=== PATIENT | female | born 1995 | race American Indian/Alaskan Native ===

== ENCOUNTER 2017-04-03 03:40 | Inpatient (IN) | payer MEDICAID ==
[2017-04-03] MEDS ORDERED: BRETHINE SUB-Q PRN (04:14)
[2017-04-03] MEDS ORDERED: MINERAL OIL PO PRN (04:14)
[2017-04-03] MEDS ORDERED: ePHEDrine SULFATE IV PRN ×2 (04:14→06:26)
[2017-04-03] MEDS ORDERED: SUBLIMAZE IV PRN (04:14)
[2017-04-03] MEDS ORDERED: STADOL IV PRN (04:14)
[2017-04-03] MEDS ORDERED: XYLOCAINE 2% INFILTRATI ONE (04:14)
[2017-04-03] MEDS ORDERED: BRETHINE IVP PRN (04:14)
[2017-04-03] MEDS: LACTATED RINGERS 1,000 ML IV SCH ×2 (04:30→05:22)
[2017-04-03] MEDS ORDERED: ZOFRAN ONE (04:44)
[2017-04-03 04:51] LABS: Hemoglobin 13.2 gm/dl (10.1-14.3); Mean Corpuscular HGB Conc 35 % (30-34); Mean Corpuscular Hemoglobin 33 pg (28-32); Mean Corpuscular Volume 95 fl (79-97); Platelet Count 122 K/mm3 (140-440); Red Blood Count 3.99 M/mm3 (3.65-5.03); Red Cell Distribution Width 13.3 % (13.2-15.2); White Blood Count 14.3 K/mm3 (4.5-11.0)
[2017-04-03] MEDS ORDERED: PITOCin/NS 20 UNIT/1000ML DRIP 20 UNITS/1,000 ML BAG IV SCH ×3 (05:00→12:00)
[2017-04-03] MEDS ORDERED: LACTATED RINGERS 1,000 ML IV SCH ×2 (05:00→11:00)
[2017-04-03] MEDS ORDERED: NARCAN 2 MG/2 ML IV PRN (06:26)
--- NOTE | 2017-04-03 06:26 | Anesthesia Consultation ---
Anesthesia Consult and Med Hx Date of service: 04/03/17 - Airway Anesthetic Teeth Evaluation: Good ROM Head & Neck: Adequate Mental/Hyoid Distance: Adequate Mallampati Class: Class II Intubation Access Assessment: Probably Good - Pulmonary Exam CTA: Yes - Cardiac Exam Cardiac Exam: RRR - Pre-Operative Health Status ASA Pre-Surgery Classification: ASA2 Proposed Anesthetic Plan: Epidural - Pulmonary Hx Asthma: No COPD: No Hx Pneumonia: No - Cardiovascular System Hx Hypertension: No - Central Nervous System Hx Seizures: No Hx Psychiatric Problems: No - Endocrine Hx Renal Disease: No Hx End Stage Renal Disease: No Hx Hypothyroidism: No Hx Hyperthyroidism: No - Hematic Hx Anemia: No Hx Sickle Cell Disease: No - Other Systems Hx Alcohol Use: No
--- NOTE | 2017-04-03 06:57 | History and Physical Report ---
History of Present Illness Date of examination: 04/03/17 (pt presented 5cm) Date of admission: 04/03/17 04:22 History of present illness: 22yo EDC Pt states she has had an uneventful Her last visit with [facility] was last Monday. Pt denies ETOH,Drug,Smoking in Unable to get PNR at this time will order labs and start Ampicillin prophylaxis for unknown GBS Past History - Obstetrical History Expected Date of Delivery: 03/30/17 (started care with [facility] @ 8weeks [place]) Actual Gestation: 40 Week(s) 4 Day(s) : 1 Para: 0 Number of Living Children: 0 Medications and Allergies Allergies Allergy/AdvReac Type Severity Reaction Status Date / Time No Known Allergies Allergy Verified 04/03/17 04:19 Home Medications Medication Instructions Recorded Confirmed Last Taken Type Vit-Fe Fumar-FA [ 1 tab PO QDAY 04/03/17 04/03/17 04/02/17 History Vitamin] Valacyclovir HCl [Valtrex] 1,000 mg PO QDAY 04/03/17 04/03/17 04/02/17 History Active Meds: Active Medications Butorphanol Tartrate (Stadol) 2 mg IV Q2H PRN PRN Reason: Pain , Severe (7-10) Last Admin: 04/03/17 04:49 Dose: 2 mg Ephedrine Sulfate (Ephedrine Sulfate) 10 mg IV Q2M PRN PRN Reason: Hypotension Fentanyl (Sublimaze) 100 mcg IV Q2H PRN PRN Reason: Labor Pain Lactated Ringer's (Lactated Ringers) 1,000 mls @ 125 mls/hr IV DIRECT PORTIA Last Admin: 04/03/17 05:22 Dose: 125 mls/hr Oxytocin/Sodium Chloride (Pitocin/Ns 20 Unit/1000ml Drip) 20 units in 1,000 mls @ 125 mls/hr IV DIRECT PORTIA Fentanyl/Bupivacaine/Sodium Chlor (Fentanyl-Bupiv 2 Mcg/Ml-0.125%) 200 mcg in 100 mls @ 12 mls/hr EPIDURAL TITR PORTIA PRN Reason: Protocol Oxytocin/Sodium Chloride (Pitocin/Ns 30 Unit/500ml) 30 units in 500 mls @ 4 mls /hr IV Q30MIN PORTIA; 4 MILLIUNITS/MIN PRN Reason: Protocol Mineral Oil (Mineral Oil) 30 ml PO QHS PRN PRN Reason: Constipation Naloxone HCl (Narcan 2 Mg/2 Ml) 0.2 mg IV Q5M PRN PRN Reason: Respiratory sedation Terbutaline Sulfate (Brethine) 0.25 mg SUB-Q ONCE PRN PRN Reason: Hyperstimulation/Hypertonicity Terbutaline Sulfate (Brethine) 0.25 mg IVP ONCE PRN PRN Reason: Hyperstimulation/Hypertonicity - Vital Signs Vital signs: Vital Signs Temp Resp 98.1 F 22 04/03/17 03:49 04/03/17 03:49 Temp Pulse Resp BP Pulse Ox 98.1 F 95 H 20 122/67 97 04/03/17 03:49 04/03/17 06:53 04/03/17 04:49 04/03/17 06:53 04/03/17 06:52 - Physical Exam Breasts: Positive: deferred Cardiovascular: Regular rate, Normal S1, Normal S2 Lungs: Positive: Normal air movement Abdomen: Positive: normal appearance, soft, normal bowel sounds. Negative: distention, tenderness Genitourinary (Female): Positive: normal external genitalia Vulva: both: normal Vagina: Positive: normal moisture. Negative: discharge Cervix: Negative: lesion, discharge Uterus: Positive: normal size, normal contour Adnexa: both: normal Anus/Rectum: Positive: normal perianal skin, heme negative. Negative: rectal mass, hemorrhoids Extremities: Positive: normal Deep Tendon Reflex Grade: Normal +2 - Obstetrical FHR: category 1 Uterine Contraction Monitor Mode: External Cervical Dilatation: 5 (BBOW on admission) Cervical Effacement Percentage: 70 station: -1 Uterine Contraction Pattern: Regular Uterine Contraction Intensity: Moderate Results Result Diagrams: 04/03/17 Unknown Abnormal lab results 04/03/17 Range/Units Unknown WBC 14.3 H (4.5-11.0) K/mm3 MCH 33 H (28-32) pg MCHC 35 H (30-34) % Plt Count 122 L (140-440) K/mm3 All other labs normal. All labs ordered Assessment and Plan 22yo who presented to [facility] in active labor Unable to access PNV Will send SHERI to practice GBS unknown will treat All orders in EMR
[2017-04-03] MEDS ORDERED: PITOCin/NS 30 UNIT/500ML 30 UNITS/500 ML BAG IV SCH (07:00)
[2017-04-03] MEDS ORDERED: METHERGINE IM PRN (07:00)
[2017-04-03] MEDS ORDERED: fentaNYL-BUPIV 2 MCG/ML-0.125% 200 MCG/100 ML BAG EPIDURAL SCH (07:00)
--- NOTE | 2017-04-03 07:21 | Event Note ---
Date: 04/03/17 (pt comfortable with epidural) SVE AROM clear fluid ISE/IUPC placed. SVE no chg. Called urgently back to LDR after approx 10 min for prolong deceleration ISE was not attached. Pt being repositioned side to side. O2 on. 2nd ISE applied worked immediately. Terb and Ephedrine given. FHR recovered minimal variability. Variable decel . Explained all findings and concerns to pt and her mom. SVE 6,100,+1 Ctx now Q5-6. Will start pitocin per protocol.
[2017-04-03] MEDS ORDERED: POLYCILLIN/NS 2 GM/100 ML 2 GM/100 ML BAG IV ONE (07:30)
[2017-04-03 07:43] LABS: HIV-1 Antigen p24 Non React (Non React); HIVR-1/2 Ab Non React (Non React)
[2017-04-03 08:19] LABS: Urine Drugs of Abuse Note Disclamer
[2017-04-03 08:29] LABS: Bilirubin,Urine NEG (Negative); Blood,Urine LG (Negative); Ketones,Urine 80 mg/dL (Negative); Leukocyte Esterase,Urine NEG (Negative); Mucus,Urine 1+ /HPF; Nitrite,Urine NEG (Negative); Urobilinogen,Urine < 2.0 mg/dL (<2.0)
[2017-04-03] MEDS ORDERED: BICITRA PO NR (10:04)
--- NOTE | 2017-04-03 10:06 | Progress Note ---
Assessment and Plan Spoke with Cat 2 SVE 7,100,-1 Deep variables with ctx section called Spoke with pt and family explained need for operative intervention Risks explained Consents signed Prepped for c/s Subjective - Subjective Date of service: 04/03/17 (Repetative deep variables Spoke with C/S called) Interval history: 22yo EDC Pt states she has had an uneventful Her last visit with [facility] was last Monday. Pt denies ETOH,Drug,Smoking in Unable to get PNR at this time will order labs and start Ampicillin prophylaxis for unknown GBS Patient reports: movement normal Objective - Vital Signs Vital Signs: Vital Signs - 12hr 04/03/17 04/03/17 04/03/17 03:49 03:55 04:00 Temperature 98.1 F Pulse Rate 106 H 96 H Respiratory 22 Rate Blood Pressure 137/73 Blood Pressure [Left] O2 Sat by Pulse 100 97 Oximetry 04/03/17 04/03/17 04/03/17 04:05 04:10 04:15 Temperature Pulse Rate 96 H 95 H 92 H Respiratory Rate Blood Pressure Blood Pressure [Left] O2 Sat by Pulse 98 98 98 Oximetry 04/03/17 04/03/17 04/03/17 04:20 04:49 04:57 Temperature Pulse Rate 113 H 88 Respiratory 20 Rate Blood Pressure Blood Pressure [Left] O2 Sat by Pulse 97 96 Oximetry 04/03/17 04/03/17 04/03/17 05:00 05:02 05:05 Temperature Pulse Rate 84 82 89 Respiratory Rate Blood Pressure Blood Pressure [Left] O2 Sat by Pulse 94 97 93 Oximetry 04/03/17 04/03/17 04/03/17 05:07 05:11 05:12 Temperature Pulse Rate 86 84 85 Respiratory Rate Blood Pressure Blood Pressure [Left] O2 Sat by Pulse 95 92 96 Oximetry 04/03/17 04/03/17 04/03/17 05:17 05:22 05:23 Temperature Pulse Rate 84 76 96 H Respiratory Rate Blood Pressure Blood Pressure [Left] O2 Sat by Pulse 97 96 92 Oximetry 04/03/17 04/03/17 04/03/17 05:27 05:28 05:32 Temperature Pulse Rate 88 88 82 Respiratory Rate Blood Pressure Blood Pressure [Left] O2 Sat by Pulse 96 94 97 Oximetry 04/03/17 04/03/17 04/03/17 05:36 05:37 05:42 Temperature Pulse Rate 97 H 85 84 Respiratory Rate Blood Pressure Blood Pressure [Left] O2 Sat by Pulse 94 96 95 Oximetry 04/03/17 04/03/17 04/03/17 05:46 05:47 05:52 Temperature Pulse Rate 90 83 92 H Respiratory Rate Blood Pressure Blood Pressure [Left] O2 Sat by Pulse 94 97 94 Oximetry 04/03/17 04/03/17 04/03/17 05:57 06:02 06:07 Temperature Pulse Rate 104 H 85 93 H Respiratory Rate Blood Pressure Blood Pressure [Left] O2 Sat by Pulse 95 99 97 Oximetry 04/03/17 04/03/17 04/03/17 06:10 06:12 06:17 Temperature Pulse Rate 53 L 99 H 84 Respiratory Rate Blood Pressure Blood Pressure [Left] O2 Sat by Pulse 85 98 98 Oximetry 04/03/17 04/03/17 04/03/17 06:22 06:23 06:25 Temperature Pulse Rate 87 91 H 82 Respiratory Rate Blood Pressure 120/63 Blood Pressure [Left] O2 Sat by Pulse 98 92 Oximetry 04/03/17 04/03/17 04/03/17 06:27 06:29 06:31 Temperature Pulse Rate 81 85 88 Respiratory Rate Blood Pressure 115/62 117/59 119/60 Blood Pressure [Left] O2 Sat by Pulse 95 Oximetry 04/03/17 04/03/17 04/03/17 06:32 06:33 06:35 Temperature Pulse Rate 84 90 95 H Respiratory Rate Blood Pressure 115/62 116/61 Blood Pressure [Left] O2 Sat by Pulse 97 Oximetry 04/03/17 04/03/17 04/03/17 06:37 06:39 06:41 Temperature Pulse Rate 99 H 93 H 91 H Respiratory Rate Blood Pressure 117/61 123/62 116/60 Blood Pressure [Left] O2 Sat by Pulse 98 Oximetry 04/03/17 04/03/17 04/03/17 06:42 06:43 06:45 Temperature Pulse Rate 86 92 H 90 Respiratory Rate Blood Pressure 121/62 120/63 Blood Pressure [Left] O2 Sat by Pulse 97 Oximetry 04/03/17 04/03/17 04/03/17 06:47 06:49 06:51 Temperature Pulse Rate 91 H 88 85 Respiratory Rate Blood Pressure 119/63 119/63 124/63 Blood Pressure [Left] O2 Sat by Pulse 97 Oximetry 04/03/17 04/03/17 04/03/17 06:52 06:53 06:55 Temperature Pulse Rate 81 95 H 88 Respiratory Rate Blood Pressure 122/67 118/65 Blood Pressure [Left] O2 Sat by Pulse 97 Oximetry 04/03/17 04/03/17 04/03/17 06:57 06:59 07:01 Temperature Pulse Rate 85 95 H 92 H Respiratory Rate Blood Pressure 121/65 121/66 123/66 Blood Pressure [Left] O2 Sat by Pulse 96 Oximetry 04/03/17 04/03/17 04/03/17 07:02 07:04 07:05 Temperature Pulse Rate 81 88 88 Respiratory Rate Blood Pressure 118/65 116/66 Blood Pressure [Left] O2 Sat by Pulse 82 L Oximetry 04/03/17 04/03/17 04/03/17 07:07 07:10 07:11 Temperature Pulse Rate 86 81 78 Respiratory Rate Blood Pressure 110/65 141/66 135/63 Blood Pressure [Left] O2 Sat by Pulse 81 L Oximetry 04/03/17 04/03/17 04/03/17 07:13 07:14 07:15 Temperature Pulse Rate 89 54 L 82 Respiratory Rate Blood Pressure 128/62 129/61 Blood Pressure [Left] O2 Sat by Pulse 86 Oximetry 04/03/17 04/03/17 04/03/17 07:17 07:19 07:21 Temperature Pulse Rate 80 80 89 Respiratory Rate Blood Pressure 131/61 128/62 131/60 Blood Pressure [Left] O2 Sat by Pulse 81 L Oximetry 04/03/17 04/03/17 04/03/17 07:23 07:24 07:25 Temperature Pulse Rate 90 88 107 H Respiratory Rate Blood Pressure 131/62 125/62 Blood Pressure [Left] O2 Sat by Pulse 100 Oximetry 04/03/17 04/03/17 04/03/17 07:27 07:29 07:31 Temperature Pulse Rate 91 H 88 88 Respiratory Rate Blood Pressure 132/64 127/60 129/62 Blood Pressure [Left] O2 Sat by Pulse 100 Oximetry 04/03/17 04/03/17 04/03/17 07:33 07:34 07:35 Temperature Pulse Rate 92 H 92 H 93 H Respiratory Rate Blood Pressure 128/57 127/60 Blood Pressure [Left] O2 Sat by Pulse 100 Oximetry 04/03/17 04/03/17 04/03/17 07:37 07:39 07:41 Temperature Pulse Rate 86 91 H 94 H Respiratory Rate Blood Pressure 124/56 125/58 126/61 Blood Pressure [Left] O2 Sat by Pulse 100 Oximetry 04/03/17 04/03/17 04/03/17 07:43 07:44 07:45 Temperature Pulse Rate 91 H 88 92 H Respiratory Rate Blood Pressure 119/57 127/60 Blood Pressure [Left] O2 Sat by Pulse 100 Oximetry 04/03/17 04/03/17 04/03/17 07:47 07:49 07:51 Temperature Pulse Rate 51 L 92 H 96 H Respiratory Rate Blood Pressure 130/64 130/61 127/62 Blood Pressure [Left] O2 Sat by Pulse 100 Oximetry 04/03/17 04/03/17 04/03/17 07:53 07:54 07:55 Temperature Pulse Rate 88 96 H 93 H Respiratory Rate Blood Pressure 130/60 126/60 Blood Pressure [Left] O2 Sat by Pulse 100 Oximetry 04/03/17 04/03/17 04/03/17 07:57 07:59 08:01 Temperature Pulse Rate 93 H 93 H 100 H Respiratory Rate Blood Pressure 129/61 130/60 131/74 Blood Pressure [Left] O2 Sat by Pulse 100 Oximetry 04/03/17 04/03/17 04/03/17 08:04 08:05 08:07 Temperature Pulse Rate 91 H 90 106 H Respiratory Rate Blood Pressure 130/71 132/64 128/61 Blood Pressure [Left] O2 Sat by Pulse 99 Oximetry 04/03/17 04/03/17 04/03/17 08:09 08:11 08:13 Temperature Pulse Rate 90 100 H 99 H Respiratory Rate Blood Pressure 129/60 127/61 125/61 Blood Pressure [Left] O2 Sat by Pulse 100 Oximetry 04/03/17 04/03/17 04/03/17 08:14 08:15 08:17 Temperature Pulse Rate 91 H 90 102 H Respiratory Rate Blood Pressure 124/61 130/64 Blood Pressure [Left] O2 Sat by Pulse 100 Oximetry 04/03/17 04/03/17 04/03/17 08:19 08:21 08:23 Temperature Pulse Rate 91 H 99 H 109 H Respiratory Rate Blood Pressure 128/64 131/66 131/62 Blood Pressure [Left] O2 Sat by Pulse 100 Oximetry 04/03/17 04/03/17 04/03/17 08:24 08:25 08:27 Temperature Pulse Rate 102 H 107 H 103 H Respiratory Rate Blood Pressure 130/63 128/61 Blood Pressure [Left] O2 Sat by Pulse 99 Oximetry 04/03/17 04/03/17 04/03/17 08:29 08:31 08:33 Temperature Pulse Rate 95 H 96 H 88 Respiratory Rate Blood Pressure 129/59 131/60 125/62 Blood Pressure [Left] O2 Sat by Pulse 100 Oximetry 04/03/17 04/03/17 04/03/17 08:34 08:35 08:37 Temperature Pulse Rate 98 H 90 94 H Respiratory Rate Blood Pressure 128/61 126/63 Blood Pressure [Left] O2 Sat by Pulse 100 Oximetry 04/03/17 04/03/17 04/03/17 08:39 08:41 08:43 Temperature Pulse Rate 93 H 92 H 93 H Respiratory Rate Blood Pressure 128/62 127/64 126/62 Blood Pressure [Left] O2 Sat by Pulse 100 Oximetry 04/03/17 04/03/17 04/03/17 08:44 08:45 08:47 Temperature Pulse Rate 89 94 H 110 H Respiratory Rate Blood Pressure 125/60 128/63 Blood Pressure [Left] O2 Sat by Pulse 100 Oximetry 04/03/17 04/03/17 04/03/17 08:49 08:51 08:53 Temperature Pulse Rate 92 H 98 H 103 H Respiratory Rate Blood Pressure 126/60 129/65 140/63 Blood Pressure [Left] O2 Sat by Pulse 100 Oximetry 04/03/17 04/03/17 04/03/17 08:54 08:56 08:57 Temperature 99.8 F H Pulse Rate 100 H 97 H 93 H Respiratory 18 Rate Blood Pressure 114/80 115/58 Blood Pressure 120/56 [Left] O2 Sat by Pulse 100 100 Oximetry 04/03/17 04/03/17 04/03/17 08:59 09:01 09:04 Temperature Pulse Rate 99 H 98 H 100 H Respiratory Rate Blood Pressure 120/56 118/55 Blood Pressure [Left] O2 Sat by Pulse 100 100 Oximetry 04/03/17 04/03/17 04/03/17 09:09 09:14 09:17 Temperature Pulse Rate 98 H 100 H 110 H Respiratory Rate Blood Pressure 119/58 Blood Pressure [Left] O2 Sat by Pulse 100 100 Oximetry 04/03/17 04/03/17 04/03/17 09:19 09:24 09:29 Temperature Pulse Rate 104 H 107 H 104 H Respiratory Rate Blood Pressure Blood Pressure [Left] O2 Sat by Pulse 99 100 98 Oximetry 04/03/17 04/03/17 04/03/17 09:32 09:34 09:39 Temperature Pulse Rate 112 H 105 H 102 H Respiratory Rate Blood Pressure 114/61 Blood Pressure [Left] O2 Sat by Pulse 98 100 Oximetry 04/03/17 04/03/17 04/03/17 09:44 09:47 09:49 Temperature Pulse Rate 111 H 100 H 102 H Respiratory Rate Blood Pressure 108/58 Blood Pressure [Left] O2 Sat by Pulse 98 100 Oximetry 04/03/17 04/03/17 04/03/17 09:54 09:59 10:02 Temperature Pulse Rate 100 H 97 H 94 H Respiratory Rate Blood Pressure 118/61 Blood Pressure [Left] O2 Sat by Pulse 100 100 Oximetry - Exam Breasts: normal Abdomen: Present: normal appearance, soft. Absent: distention, tenderness Uterus: Present: normal FHR: auscultation normal, category 2 Uterine Contraction Monitor Mode: Internal Cervical Dilatation: 7 (Bloody show) Cervical Effacement Percentage: 100 station: -1 Uterine Contraction Pattern: Regular Uterine Contraction Intensity: Moderate Extremities: normal Deep Tendon Reflex Grade: Normal +2 - Labs Labs: Abnormal Labs 04/03/17 04/03/17 08:11 Unknown WBC 14.3 H MCH 33 H MCHC 35 H Plt Count 122 L Urine WBC (Auto) 10.0 H Laboratory Results - last 24 hr 04/03/17 04/03/17 04/03/17 04:35 04:35 08:11 WBC RBC Hgb Hct MCV MCH MCHC RDW Plt Count Sickle Cell Screen Urine Color Yellow Urine Turbidity Clear Urine pH 6.0 Ur Specific [place] 1.019 Urine Protein 30 mg/dl Urine Glucose (UA) Neg Urine Ketones 80 Urine Blood Lg Urine Nitrite Neg Urine Bilirubin Neg Urine Urobilinogen < 2.0 Ur Leukocyte Esterase Neg Urine WBC (Auto) 10.0 H Urine RBC (Auto) 84.0 U Epithel Cells (Auto) 2.0 Urine Mucus 1+ HIV 1&2 Antibody Rapid Non react HIV P24 Antigen Non react Rubella IgG Antibody Immune Blood Type Antibody Screen 04/03/17 04/03/17 04/03/17 Unknown Unknown Unknown WBC 14.3 H RBC 3.99 Hgb 13.2 Hct 38.0 MCV 95 MCH 33 H MCHC 35 H RDW 13.3 Plt Count 122 L Sickle Cell Screen Negative Urine Color Urine Turbidity Urine pH Ur Specific [place] Urine Protein Urine Glucose (UA) Urine Ketones Urine Blood Urine Nitrite Urine Bilirubin Urine Urobilinogen Ur Leukocyte Esterase Urine WBC (Auto) Urine RBC (Auto) U Epithel Cells (Auto) Urine Mucus HIV 1&2 Antibody Rapid HIV P24 Antigen Rubella IgG Antibody Blood Type B POSITIVE Antibody Screen Negative
--- NOTE | 2017-04-03 10:28 | Anesthesia Day of Surgery ---
Anesthesia Day of Surgery - Day of Surgery Patient Examined: Yes Patient H&P Reviewed: Yes Patient is NPO: Yes
[2017-04-03] MEDS ORDERED: TORADOL IV PRN (10:29)
[2017-04-03] MEDS ORDERED: MORPHINE IV PRN ×2 (10:29→11:45)
[2017-04-03] MEDS ORDERED: PEPCID IV NR (10:30)
[2017-04-03] MEDS ORDERED: REGLAN IV NR (10:30)
--- NOTE | 2017-04-03 10:31 | Event Note ---
Date: 04/03/17 Pt with failure to progress with variable decels noted with contractions. Will proceed with primary c/s for intolearance to labor and failure to progress. Pt reports an 80lb weight gain but no other issues this including having a negative 1hr glucose screen.
[2017-04-03] MEDS ORDERED: XYLOCAINE MPF 2% ONE ×2 (10:37)
[2017-04-03] MEDS ORDERED: POLYCILLIN/NS 1 GM/50 ML 1 GM/50 ML BAG IV SCH (11:00)
[2017-04-03] MEDS ORDERED: WATER FOR IRRIG STERILE IR ONE (11:00)
[2017-04-03] MEDS ORDERED: NACL 0.9% IR ONE (11:00)
[2017-04-03] MEDS ORDERED: ANCEF/STERILE WATER 2 GM/20 ML 2 GM/20 ML SYRINGE IV NR (11:00)
[2017-04-03] MEDS ORDERED: METHERGINE IM ONE (11:04)
[2017-04-03] MEDS ORDERED: NEO SYNEPHRINE/NS Syringe(OR USE) IV ONE (11:11)
--- NOTE | 2017-04-03 11:39 | Operative Report ---
Operative Report Operative Report: Date of procedure: 04/03/2017 Pre-operative diagnosis: 40 +Weeks' gestation Failure to progress intolerance to labor Post-operative diagnosis: Same Procedure name(s): Primary low transverse section via Pfannenstiel skin incision Surgeon: Dr. Forde Acupuncturist: NICK Anesthesia: Epidural EBL: 700 mL Urine output: 100 mL of clear urine out at the end of the procedure Fluids: 700 mL Findings: Liveborn female infant weight 7 lbs. 7 oz. Apgars of 8 and 9 at one and 5 minutes direct OP presentation Grossly normal fallopian tubes and ovaries bilaterally Indications: A she presented in active labor. Patient progressed approximately 6-7 cm without any cervical warp changer several hours. Patient was noted to have prolonged deceleration followed by repetitive variables. Patient was not started on Pitocin as it was felt that the baby could not tolerate the Pitocin. Decision was made this time to proceed with primary section due to intolerance to labor as well as failure to progress. Procedure: Patient was taking to the operating room. Patient was then prepped and draped in sterile fashion after anesthesia was found to be adequate. A low transverse skin incision was made with the scalpel and carried down to the underlying layer of fascia with the Bovie. The fascia was then incised in the midline and this incision was extended bilaterally with the Bovie. The superior aspect of the fascia was grasped with Jhon clamps tented upward and dissected off of the anterior rectus muscles with the scalpel. In similar fashion the inferior aspect of the fascia was grasped with Jhon clamps tented upward and dissected off of the anterior rectus muscles. The rectus muscles were then bluntly divided in the midline. The peritoneum was identified and entered into sharply. The Isaac retractor was placed. The bladder blade was placed. The bladder flap was created using the Metzenbaum scissors. The bladder blade was replaced. A lower transverse uterine incision was made with the scalpel and extended bilaterally with the bandage scissors. An [place] into the uterus yielded clear amniotic fluid. The infant's head was then delivered atraumatically. The anterior shoulder and rest of infant delivered without difficulty. The umbilical cord was clamped x2. The cord was cut. The was then placed in sterile bassinet. The placenta was manually extracted in its entirety. The uterus was exteriorized and cleared of all clots and debris. The uterine incision was closed using 0 Vicryl in a running locking fashion. A second imbricating layer of the same suture was then created. The posterior cul -de-sac was copiously irrigated. The uterus was returned to the abdomen. The gutters were also irrigated. All instruments were removed from the abdomen. The anterior rectus muscles were reapproximated using 3-0 Vicryl. The anterior rectus fascia was reapproximated using 0 Vicryl in a running fashion. The subcuticular fat was reapproximated using 2-0 Vicryl in a running fashion. The skin was reapproximated with 4-0 Monocryl in a subcuticular stitch. The patient tolerated the procedure well. Sponge lap and needle counts were all correct x3. Patient was taken to the recovery room awake and in stable condition.
[2017-04-03] MEDS ORDERED: NARCAN 0.4 MG/1 ML IV PRN (11:43)
[2017-04-03] MEDS ORDERED: LANSINOH TP PRN (11:43)
[2017-04-03] MEDS ORDERED: TUCKS PAD TP PRN (11:43)
[2017-04-03] MEDS ORDERED: MYLICON PO PRN (11:45)
[2017-04-03] MEDS ORDERED: SODIUM CHLORIDE FLUSH SYRINGE 10 ML IV NR (12:00)
[2017-04-03] MEDS: TORADOL IV PRN ×2 (15:00→21:19)
[2017-04-03] MEDS ORDERED: TORADOL IV SCH (18:00)
[2017-04-03] MEDS ORDERED: ANCEF/NS 1 GM/50 ML 1 GM/50 ML BAG IV SCH (18:00)
[2017-04-03] MEDS ORDERED: LACTATED RINGERS 1,000 ML ONE (18:54)
[2017-04-03] MEDS: ceFAZolin 1 GM in NACL 0.9% 20 ML IV SCH (19:56)
[2017-04-03] MEDS: NORCO 5/325 PO PRN (22:41)
[2017-04-03 23:38] LABS: Hematocrit 32.2 % (30.3-42.9); Hemoglobin 10.9 gm/dl (10.1-14.3)
[2017-04-04] MEDS: NORCO 5/325 PO PRN ×4 (02:08→22:36)
[2017-04-04] MEDS: ceFAZolin 1 GM in NACL 0.9% 20 ML IV SCH (04:25)
[2017-04-04] MEDS: MOTRIN PO PRN ×4 (04:26→22:36)
[2017-04-04] MEDS ORDERED: BOOSTRIX IM ONE (06:00)
--- NOTE | 2017-04-04 08:12 | Progress Note ---
Assessment and Plan Patient doing well, ambulating to bathroom with only c/o normal soreness after abd surgery. Parisa portillo, PRESTON, H&H 10.9/32.2. Encouraged increased activity and diet as tolerated. Also encouraged use of ISS. Continue current postop pathway. - Patient Problems (1) delivery delivered Current Visit: Yes Status: Acute Subjective - Subjective Date of service: 04/04/17 Principal diagnosis: postop day #1 s/p primary c/s Patient reports: appetite normal, voiding normally, pain well controlled, flatus , ambulating normally, no dizzy ambulation, no nauseated : doing well, bottle feeding Objective - Vital Signs Latest vital signs: Vital Signs Temp Pulse Resp BP BP Pulse Ox 04/04/17 05:57 98.7 F 77 18 115/78 04/04/17 05:26 16 04/04/17 04:26 18 04/04/17 03:08 18 04/04/17 02:08 18 04/04/17 00:35 97.8 F 74 18 104/52 04/03/17 23:41 18 04/03/17 22:41 18 04/03/17 21:49 18 04/03/17 21:19 18 04/03/17 21:00 98.5 F 103 H 18 125/58 04/03/17 20:26 18 04/03/17 19:56 18 04/03/17 16:58 98.7 F 91 H 18 116/61 97 04/03/17 12:48 88 28 H 132/78 99 04/03/17 12:45 98.9 F 84 18 132/74 04/03/17 12:30 21 04/03/17 12:25 98.3 F 88 23 133/88 99 04/03/17 12:10 21 132/78 99 04/03/17 11:55 91 H 20 132/75 99 04/03/17 11:50 87 16 135/69 98 04/03/17 11:45 99 F 88 16 115/65 98 04/03/17 10:29 94 H 99 04/03/17 10:24 94 H 100 04/03/17 10:19 87 100 04/03/17 10:18 93 04/03/17 10:17 97 H 106/57 04/03/17 10:14 93 H 100 04/03/17 10:09 93 H 100 04/03/17 10:04 99 H 99 04/03/17 10:02 94 H 118/61 04/03/17 09:59 97 H 100 04/03/17 09:54 100 H 100 04/03/17 09:49 102 H 100 04/03/17 09:47 100 H 108/58 04/03/17 09:44 111 H 98 04/03/17 09:39 102 H 100 04/03/17 09:34 105 H 98 04/03/17 09:32 112 H 114/61 04/03/17 09:29 104 H 98 04/03/17 09:24 107 H 100 04/03/17 09:19 104 H 99 04/03/17 09:17 110 H 119/58 04/03/17 09:14 100 H 100 04/03/17 09:09 98 H 100 04/03/17 09:04 100 H 100 04/03/17 09:01 98 H 118/55 04/03/17 08:59 99 H 120/56 100 04/03/17 08:57 93 H 115/58 04/03/17 08:56 99.8 F H 97 H 18 114/80 120/56 100 04/03/17 08:54 100 H 100 04/03/17 08:53 103 H 140/63 04/03/17 08:51 98 H 129/65 04/03/17 08:49 92 H 126/60 100 04/03/17 08:47 110 H 128/63 04/03/17 08:45 94 H 125/60 04/03/17 08:44 89 100 04/03/17 08:43 93 H 126/62 04/03/17 08:41 92 H 127/64 04/03/17 08:39 93 H 128/62 100 04/03/17 08:37 94 H 126/63 04/03/17 08:35 90 128/61 04/03/17 08:34 98 H 100 04/03/17 08:33 88 125/62 04/03/17 08:31 96 H 131/60 04/03/17 08:29 95 H 129/59 100 04/03/17 08:27 103 H 128/61 04/03/17 08:25 107 H 130/63 04/03/17 08:24 102 H 99 04/03/17 08:23 109 H 131/62 04/03/17 08:21 99 H 131/66 04/03/17 08:19 91 H 128/64 100 04/03/17 08:17 102 H 130/64 04/03/17 08:15 90 124/61 04/03/17 08:14 91 H 100 04/03/17 08:13 99 H 125/61 04/03/17 08:11 100 H 127/61 Intake and Output 04/03/17 04/04/17 04/04/17 23:59 07:59 15:59 Intake Total 360 480 Output Total 300 450 Balance 60 30 Intake: Oral 360 Intake, Free Water 480 Output: Urine 300 450 Indwelling Catheter 300 450 Other: Total, Intake Amount 360 Total, Output Amount 300 450 - Exam Breasts: Present: normal Cardiovascular: Present: Regular rate Lungs: Present: Clear to auscultation, Normal air movement Abdomen: Present: normal appearance, soft Vulva: both: normal Uterus: Present: normal, firm, fundal height at umbilicus Extremities: Present: normal Incision: Present: normal, dry, dressed (rn to remove during AM care) - Labs Labs: Abnormal lab results 04/03/17 Range/Units 08:11 Urine WBC (Auto) 10.0 H (0.0-6.0) /HPF
[2017-04-04] MEDS ORDERED: FEOSOL PO SCH (10:00)
[2017-04-04] MEDS ORDERED: PRENATAL VITAMIN PO SCH (10:00)
[2017-04-05] MEDS: MOTRIN PO PRN (04:21)
[2017-04-05] MEDS: NORCO 5/325 PO PRN (04:21)
--- NOTE | 2017-04-05 07:52 | Progress Note ---
Assessment and Plan patient doing well, desires d/c home today. Lochia scant, VSSAF, H&H stable w/ o s/s anemia. Plan for d/c home, patient will call provider for appointment or she may f/u with our office in 1 week. - Patient Problems (1) delivery delivered Current Visit: Yes Status: Acute Subjective - Subjective Date of service: 04/05/17 Principal diagnosis: postop day #2 s/p primary c/s Patient reports: appetite normal, voiding normally, pain well controlled, flatus , ambulating normally, no dizzy ambulation, no nauseated Romayor: doing well, bottle feeding Objective - Vital Signs Latest vital signs: Vital Signs Temp Pulse Resp BP Pulse Ox 04/05/17 00:45 97.7 F 67 18 107/56 95 04/04/17 17:30 98.2 F 75 18 105/63 04/04/17 08:00 97.8 F 79 18 97/58 Intake and Output 04/04/17 04/04/17 04/05/17 15:59 23:59 07:59 Intake Total 360 240 360 Output Total 900 1 2 Balance -540 239 358 Intake: Oral 360 240 360 Output: Urine 900 1 2 Void 900 1 2 Other: Total, Intake Amount 120 120 120 Total, Output Amount 900 1 1 # Voids Void 1 - Exam Breasts: Present: normal Cardiovascular: Present: Regular rate Lungs: Present: Clear to auscultation, Normal air movement Abdomen: Present: normal appearance, soft Vulva: both: normal Uterus: Present: normal, firm, fundal height at umbilicus Extremities: Present: normal Deep Tendon Reflex Grade: Normal +2 Incision: Present: normal, dry, intact
--- NOTE | 2017-04-05 07:54 | Discharge Summary ---
Providers - Providers Date of Admission: 04/03/17 04:22 Date of discharge: 04/05/17 (desires d/c home) Attending physician: ROSELIA MORALES 04/03/17 14:14 Consult to Case Management [CONS] Routine Services Needed at Discharge: Glost Placer Notified:: no Phone number called:: [phone] Was contact made?: No Additional Physician Instructions: positive uds Primary care physician: ROSELIA MORALES Hospitalization Reason for admission: active labor Delivery: Procedure: primary low transverse Episiotomy: none Laceration: none Incision: normal, dry, intact Other procedures: none complications: none Discharge diagnosis: IUP at term delivered [place] baby: female Hospital course: uncomplicated c/s delivery Condition at discharge: Good Disposition: DC-01 TO HOME OR SELFCARE - Discharge Diagnoses (1) delivery delivered Status: Acute Plan - Discharge Medications Prescriptions: Ibuprofen 800 mg PO Q6HR #30 tablet oxyCODONE /ACETAMINOPHEN [Percocet 5/325] 1 tab PO Q4HR #30 tab - Provider Discharge Summary Activity: routine, no sex for 6 weeks, no heavy lifting 4 weeks, no strenuous exercise Diet: routine Instructions: routine Additional instructions: [] Smoking cessation referral if applicable(refer to patient education folder for contact #) [] Refer to [facility]'s [facility] Booklet Call your doctor immediately for: * Fever > 100.5 * Heavy vaginal bleeding ( >1 pad per hour) * Severe persistent headache * Shortness of breath * Reddened, hot, painful area to leg or breast * Drainage or odor from incision. * Keep incision clean and dry at all times and follow doctor's instructions regarding bathing/showering - Follow up plan Follow up: ROSELIA MORALES MD [Primary Care Provider] - 7 Days (Congratulations! Please call your OBGYN or call our office @ [phone] to schedule appointment in 1 week. Call for any questions or concerns. )
[2017-04-05 09:04] VITALS: BP 110/73
== END 2017-04-05 12:16 | disposition home or self-care (01) | DRG 766 ==
LOC: TRG 03:40 → LD 04:22 → OB 13:19
PROVIDERS: ADMIT Obstetrics & Gynecology; ATTEND Obstetrics & Gynecology
PROC: 10D00Z1 Extraction of Products of Conception, Low, Open Approach (ICD-10-PCS; principal; 2017-04-03)
PROC: 10H00YZ Insertion of Other Device into Products of Conception, Open Approach (ICD-10-PCS; 2017-04-03)
PROC: 10907ZC Drainage of Amniotic Fluid, Therapeutic from Products of Conception, Via Natural or Artificial Opening (ICD-10-PCS; 2017-04-03)
DX: O76 Abnormality in fetal heart rate and rhythm complicating labor and delivery (principal); Z3A.40 40 weeks gestation of pregnancy; Z37.0 Single live birth; Z79.899 Other long term (current) drug therapy; O61.9 Failed induction of labor, unspecified
CPT/HCPCS: 36415; 80307; 81001; 85014; 85018; 85027; 85660; 86592; 86706; 86762; 86803; 86850; 86900; 86901; 87806; 88307; C9250; J0290; J0595; J0690; J1885; J2210; J2270; J2370; J2405; J2590; J2765; J3105; J7120